=== PATIENT | male | born 1990 | race American Indian/Alaskan Native ===

== ENCOUNTER 2017-11-25 18:23 | Emergency (ER) | payer MEDICAID ==
[2017-11-25 18:52] LABS: HEMOGLOBIN 13.6 g/dL (12.0-18.0); MEAN CELL VOLUME 80.6 fL (80.0-94.0); MEAN CORPUSCULAR HEMOGLOBIN 26.6 pg (27.0-31.0); RBC 5.11 Mil/uL (4.40-5.90); WHITE BLOOD COUNT 11.7 K/uL (4.8-10.8)
[2017-11-25 18:53] LABS: BASO # 0.1 K/uL (0.0-0.2); BASO % 0.5 % (0.0-2.0); LYMPH # 1.1 K/uL (1.0-4.3); LYMPH % 9.4 % (20.0-40.0); MEAN CORPUSCULAR HGB CONC 33.1 g/dL (33.0-37.0); MEAN PLATELET VOLUME 10.4 fL (7.2-11.7); MONO # 0.3 K/uL (0.0-0.8); MONO % 2.4 % (0.0-10.0); NEUT # 10.2 K/uL (1.8-7.0); NEUT % 87.7 % (50.0-75.0); NRBC % 0.3 % (0.0-2.0); PLATELET COUNT 262 K/uL (130-400)
[2017-11-25 19:21] LABS: BANDS 2 % (0-2); HYPOCHROMIC SLIGHT; LARGE PLATELETS PRESENT; LYMPHOCYTE 10 % (20-40); MICROCYTOSIS SLIGHT; MONOCYTE 4 % (0-10); NEUTROPHIL 84 % (50-75); PLATELET ESTIMATE NORMAL (NORMAL); TOTAL CELLS COUNTED 100
[2017-11-25] MEDS ORDERED: Sodium Chloride 0.9% 1,000 ML IV ONE ×2 (19:36→20:25)
[2017-11-25] MEDS ORDERED: Sodium Chloride 0.9% 1,000 ML ONE ×2 (19:42→20:26)
[2017-11-25 19:56] LABS: ALB/GLOB RATIO 1.1 (1.0-2.1); ALBUMIN 4.7 g/dL (3.5-5.0); ALT/SGPT 16 U/L (21-72); AST/SGOT 30 U/L (17-59); BLOOD UREA NITROGEN 13 mg/dL (9-20); CALCIUM 10.3 mg/dl (8.6-10.4); GFR NON-AFRICAN AMERICAN > 60; LIPASE 62 U/L (23-300)
--- NOTE | 2017-11-25 20:59 | C.PDOC ---
History Of Present Illness 27 year old male presents to the ED for evaluation of nausea and vomiting since this morning. Patient admits he was out drinking alcoholic beverages until very this morning. Patient has been unable to tolerate PO intake. Patient is also c/o digitally and positionally reproducible pain to bilateral parasternal areas that is worse when he vomits. Patient denies fever, chills, back pain or any urinary complaints at this time. Time Seen by Provider: 11/25/17 19:32 Chief Complaint (Nursing): Chest Pain History Per: Patient History/Exam Limitations: no limitations Onset/Duration Of Symptoms: Hrs Current Symptoms Are (Timing): Still Present Quality: "Pain" Past Medical History Reviewed: Historical Data, Nursing Documentation, Vital Signs Vital Signs: Last Vital Signs Temp 97.6 F 11/25/17 18:31 Pulse 72 11/25/17 20:26 Resp 13 11/25/17 20:26 BP 153/81 H 11/25/17 20:26 Pulse Ox 97 11/25/17 20:26 - Medical History PMH: No Chronic Diseases Surgical History: No Surg Hx Family History: States: Unknown Family Hx - Social History Hx Alcohol Use: Yes Hx Substance Use: No - Immunization History Hx Tetanus Toxoid Vaccination: No Hx Influenza Vaccination: Yes Hx Pneumococcal Vaccination: Yes Review Of Systems Constitutional: Negative for: Fever, Chills Gastrointestinal: Positive for: Nausea, Vomiting Musculoskeletal: Positive for: Other (pain to bilateral parasternal areas ) Physical Exam - Physical Exam Appears: Non-toxic, No Acute Distress, Other (morbidly obese, sleeping during initial evaluation ) Skin: Normal Color, Warm, Dry, No Rash Head: Atraumatic, Normacephalic Eye(s): bilateral: Normal Inspection Oral Mucosa: Moist Neck: Supple Chest: Symmetrical, No Deformity, Tenderness (digitally reproducible pain to bilateral parasternal areas ) Cardiovascular: Rhythm Regular, No Murmur Respiratory: Normal Breath Sounds, No Rales, No Rhonchi, No Wheezing Gastrointestinal/Abdominal: Soft, No Tenderness, No Guarding, No Rebound, Ascites (obese ) Extremity: Normal ROM, Capillary Refill (less than 2 seconds ) Neurological/Psych: Oriented x3, Normal Speech, Normal Cognition ED Course And Treatment - Laboratory Results Result Diagrams: 11/25/17 18:49 11/25/17 18:49 ECG Rhythm: Sinus Rhythm Interpretation Of ECG: Normal Sinus Rhythm at rate 75bpm. Rate From EC O2 Sat by Pulse Oximetry: 97 (on RA) Pulse Ox Interpretation: Normal Progress Note: bloodwork ordered and reviewed. Pepcid IVP, Toradol IIVP, Zofran IVP, and IV Fluids given. Medical Decision Making Medical Decision Making: parasternal costochondritis alcohol abuse Disposition Doctor Will See Patient In The: Office Counseled Patient/Family Regarding: Studies Performed, Diagnosis - Disposition Disposition: HOME/ ROUTINE Disposition Time: 21:05 Condition: GOOD Forms: [employer] (Maltese) - Clinical Impression Clinical Impression: Chest wall discomfort, Vomiting - Scribe Statement The provider has reviewed the documentation as recorded by the Scribe (Katie Rubin) Provider Attestation: All medical record entries made by the Scribe were at my direction and personally dictated by me. I have reviewed the chart and agree that the record accurately reflects my personal performance of the history, physical exam, medical decision making, and the department course for this patient. I have also personally directed, reviewed, and agree with the discharge instructions and disposition.
[2017-11-25 21:48] VITALS: PULSE 89; RESP 21
[2017-11-25 22:10] VITALS: BP 116/62; TEMP 98.8; O2SAT 97
--- NOTE | 2017-11-26 20:18 | CARD ---
APPROVED REPORT Date of service: 11/25/2017 EKG Measurement Heart [id number] <Conclusion> Normal sinus rhythm Normal ECG
== END 2017-11-25 22:11 | disposition home or self-care (01) ==
LOC: C.ER 18:23
DX: R07.89 Other chest pain (principal); R11.2 Nausea with vomiting, unspecified
CPT/HCPCS: 36415; 80053; 83690; 84484; 85025; 93005; 96361; 96374; 96375; 96376; 99285; J1885; J2405; J7030